=== PATIENT | male | born 1955 | race Caucasian/White ===

== ENCOUNTER → 2016-09-14 | Outpatient (CLI) | payer BC ==
[~2016-09-14] MED LIST: ASPIR 8181 MG PO; CILOSTAZOL50 MG PO; LAMISIL250 MG PO; LIPITOR10 MG PO; PLAVIX 75 MG TA75 MG PO
== END ==
LOC: HEART 5 08:56
DX: R06.02 Shortness of breath (principal); F17.200 Nicotine dependence, unspecified, uncomplicated
CPT/HCPCS: 94010

== ENCOUNTER → 2016-10-18 | Outpatient (CLI) | payer OTHER | LOC: HEART 5 09-19 13:30 | DX: I73.9 Peripheral vascular disease, unspecified (principal); I45.10 Unspecified right bundle-branch block; R06.02 Shortness of breath; F17.200 Nicotine dependence, unspecified, uncomplicated; E78.5 Hyperlipidemia, unspecified | CPT/HCPCS: 93306; 93925 ==

== ENCOUNTER → 2021-01-28 | Outpatient (CLI) | payer OTHER ==
[~2021-01-28] MED LIST changes: +ACETYL L-CARNITINE PO; +ALPHA LIPOIC ACID PO; +APPLE CIDER VINEGAR PO; +ATORVASTATIN CA40 MG PO; -CILOSTAZOL50 MG PO; +CLOPIDOGREL75 MG PO; +CO Q-10100 MG PO; +GARLIC1000 MG PO; +GINGER ROOT PO; +IBU800 MG PO; -LIPITOR10 MG PO; +LIPITOR20 MG PO; +NAPROSYN500 MG PO; +PLETAL 100 MG100 MG PO; +SUPER TWIN EP1250 MG PO; +TESTOSTERONE PO; +XARELTO2.5 MG PO; +ZETIA10 MG PO
[2021-01-28 10:10] LABS: BUN/CREATININE RATIO 12 (0-10)
== END ==
LOC: LAB 09:28
PROVIDERS: Physician Assistant Surgical
DX: E78.5 Hyperlipidemia, unspecified (principal)
CPT/HCPCS: 36415; 80053; 80061

== ENCOUNTER → 2021-02-18 | Outpatient (CLI) | payer OTHER | LOC: EXRD 13:00 | DX: I73.9 Peripheral vascular disease, unspecified (principal) | CPT/HCPCS: 93922; 93925 ==

== ENCOUNTER → 2021-12-07 | Outpatient (CLI) | payer MEDICARE, OTHER | LOC: CT 12-02 08:30 | DX: I70.223 Atherosclerosis of native arteries of extremities with rest pain, bilateral legs (principal); E78.5 Hyperlipidemia, unspecified | CPT/HCPCS: 36415; 75635; 82565; 84520; Q9967 ==